=== PATIENT | male | born 1945 | race Caucasian/White ===

== ENCOUNTER → 2017-05-14 | Outpatient (CLI) | payer MEDICARE, OTHER ==
[~2017-05-14] MED LIST: ARAVA20 MG PO; ATENOLOL 50MG T50 M1 PO; BACTRIM DS TAB1 EACH PO; FOLIC ACID1 MG PO; GLUCOPHAGE500 MG PO; IRON; IRON PO; JANTOVEN5 MG PO; LIPITOR80 MG PO; LORTAB 5 MG/5001 TA1 PO; NORCO 5-325 TA1 EACH PO; SULFASALAZINE500 M4 PO; VITAMIN D250000 UNIT PO; VITAMIN D400 UNI1 PO; VITAMINC500 PO; ZOFRAN 4 MG ORAL4 M1 DIS
== END ==
LOC: M.RAD 11:50
DX: J18.9 Pneumonia, unspecified organism (principal); K44.9 Diaphragmatic hernia without obstruction or gangrene

== ENCOUNTER → 2019-01-07 | Outpatient (CLI) | payer MEDICARE, OTHER ==
--- NOTE | 2019-01-07 14:42 | 2DMMODE ---
[place] [address] 2 D/M-MODE ECHOCARDIOGRAM Name: KAYLAN AKHTAR Room: [facility]#: [id number] Admission: 01/07/19 Attend Phys: Adela QUINN Michaud Discharge: Date of : 47 Date of Service: 01/07/19 1442 Report #: [id number] THIS REPORT FOR: //name// APPROVED REPORT Study performed: 01/07/2019 09:01:23 EXAM: Comprehensive 2D, Doppler, and color-flow Echocardiogram Patient Location: Out-Patient BSA: 2.11 HR: 55 bpm BP: 138/87 mmHg Rhythm: NSR Other Information Study Quality: Good Indications Dyspnea Chest Pain Hypertension/HDD 2D Dimensions IVSd: 9.18 (7-11mm) LVOT Diam: 23.54 (18-24mm) LVDd: 54.03 mm PWd: 9.84 (7-11mm) Ascending Ao: 33.88 (22-36mm) LVDs: 35.76 (25-40mm) Aortic Root: 34.14 mm Volumes Left Atrial Volume (Systole) LA ESV Index: 24.90 mL/m2 Aortic Valve AoV Peak Salvatore.: 1.11 m/s AO Peak Gr.: 4.95 mmHg LVOT Max P.50 mmHg AO Mean Gr.: 2.65 mmHg LVOT Mean P.73 mmHg LVOT Max V: 1.06 m/s AO V2 VTI: 28.06 cm LVOT Mean V: 0.58 m/s ROSAMARIA (VTI): 3.76 cm2 LVOT V1 VTI: 24.23 cm Mitral Valve E/A Ratio: 1.54 MV Decel. Time: 192.69 [place] [address] 2 D/M-MODE ECHOCARDIOGRAM Name: KAYLAN AKHTAR Room: [facility]#: [id number] Admission: 01/07/19 Attend Phys: Adela QUINN Michaud Discharge: Date of : 47 Date of Service: 01/07/19 1442 Report #: [id number] MV E Max Salvatore.: 0.71 m/s MV PHT: 55.88 ms MVA (PHT): 3.94 cm2 TDI E/Lateral E': 5.46 E/Medial E': 5.92 Medial E' Salvatore.: 0.12 m/s Lateral E' Salvatore.: 0.13 m/s Pulmonary Valve PV Peak Salvatore.: 0.77 m/s PV Peak Gr.: 2.39 mmHg Left Ventricle The left ventricle is normal size. There is normal LV segmental wall motion. There is normal left ventricular wall thickness. Left ventricular systolic function is normal. LVEF is 55-60%. The left ventricular diastolic function is normal. Right Ventricle The right ventricle is normal size. The right ventricular systolic function is normal. Atria The left atrium size is normal. The right atrium size is normal. Aortic Valve Mild aortic valve sclerosis. No aortic regurgitation is present. There is no aortic valvular stenosis. Mitral Valve The mitral valve is normal in structure. There is no mitral valve regurgitation noted. No evidence of mitral valve stenosis. Tricuspid Valve The tricuspid valve is normal in structure. Unable to assess PA pressure. Trace tricuspid regurgitation. Pulmonic Valve The pulmonary valve is normal in structure. There is no pulmonic valvular regurgitation. Great Vessels The aortic root is normal in size. IVC is normal in size and collapses >50% [place] [address] 2 D/M-MODE ECHOCARDIOGRAM Name: KAYLAN AKHTAR Room: [facility]#: [id number] Admission: 01/07/19 Attend Phys: Adela QUINN Michaud Discharge: Date of : 47 Date of Service: 01/07/19 1442 Report #: [id number] Pericardium There is no pericardial effusion. <Conclusion> The left ventricle is normal size. There is normal left ventricular wall thickness. Left ventricular systolic function is normal. LVEF is 55-60%. The left ventricular diastolic function is normal. There is normal LV segmental wall motion. IVC is normal in size and collapses >50% with inspiration. <ELECTRONICALLY SIGNED> By: Marcio Wallis MD, FACC 01/07/19 [phone] 41 Marcio Wallis MD, FACC /INF
== END ==
LOC: M.CRD 01-06 13:13 → M.CT 08:07
DX: I35.8 Other nonrheumatic aortic valve disorders (principal); I26.99 Other pulmonary embolism without acute cor pulmonale; K44.9 Diaphragmatic hernia without obstruction or gangrene; I10 Essential (primary) hypertension; E11.9 Type 2 diabetes mellitus without complications; R53.83 Other fatigue; Z86.711 Personal history of pulmonary embolism

== ENCOUNTER → 2019-01-14 | Outpatient (CLI) | payer MEDICARE, OTHER | LOC: M.RAD 16:42 | DX: K44.9 Diaphragmatic hernia without obstruction or gangrene (principal); I26.99 Other pulmonary embolism without acute cor pulmonale; R63.5 Abnormal weight gain; Z79.01 Long term (current) use of anticoagulants ==

== ENCOUNTER → 2019-02-19 | Outpatient (CLI) | payer MEDICARE, OTHER | LOC: M.ULTRA 16:00 | DX: I82.611 Acute embolism and thrombosis of superficial veins of right upper extremity (principal) ==

== ENCOUNTER → 2019-09-28 | Outpatient (CLI) | payer OTHER ==
--- NOTE | 2019-09-28 17:22 | CARDNUC ---
[place] [address] CARDIAC NUCLEAR IMAGING REPORT Name: KAYLAN AKHTAR Room: [facility]#: [id number] Admission: 09/28/19 Attend Phys: LESA Chavez Discharge: Date of : 47 Date of Service: 09/28/19 1721 Report #: [id number] THIS REPORT FOR: cc: Adela Michaud Tammy RNP Liston, Michael J. MD [facility] ~ APPROVED REPORT Imaging Protocol: Rest Tc-99m/Stress Tc-99m 1 day Study performed: 09/28/2019 12:30:00 Indication: Chest pain, Dyspnea, Hx. of PE, Hx. Tachycardia/palpitations Patient Location: Out-Patient Stress Tech: Lilian Laguerre Stress Nurse: Ailyn Myers RN NM Tech:SHARAD Herrera Ht: 5 ft 11 in Wt: 205 lbs BSA: 2.13 m2 BMI: 28.58 Medical History Medications: Lisinopril, Warfarin( Jantoven), Atenolol, Pitavastatin, ASA-81 Allergies: No known drug allergies Cardiac Risk Factors: Age, HTN, Hyperlipidemia, DM, FHX of CAD Meds Held (24 hrs): Atenolol Resting Data Rest SPECT myocardial perfusion imaging was performed in supine position 30 minutes following the intravenous injection of 10.7 mCi of Tc-99m Sestamibi. Time of rest injection: 1245 Date: 09/28/2019 The images were gated to evaluate regional wall motion and calculate left ventricular ejection fraction. Administration Route: IV Administration Site: Left Arm Pharmacologic Stress Pharmacologic stress test was performed by injecting Regadenoson 0.4 mg IV push over 10-15 seconds immediately followed by the intravenous injection of 31.0 mCi of Tc-99m Sestamibi. Time of stress injection: 1435 Date: 09/28/2019 Administration Route: [place] [address] CARDIAC NUCLEAR IMAGING REPORT Name: KAYLAN AKHTAR Room: [facility]#: [id number] Admission: 09/28/19 Attend Phys: LESA Chavez Discharge: Date of : 47 Date of Service: 09/28/19 1721 Report #: [id number] Administration Site: Left Arm Gated Stress SPECT was performed 40 minutes after stress injection. The images were gated to evaluate regional wall motion and calculate left ventricular ejection fraction. Stress only was performed in the Supine position. Stress Test Details Stress Test: Pharmacologic stress testing performed using 0.4 mg of regadenoson per 5 mL given IV over 10 seconds. Reason for pharmacologic stress test: arthritis. HR Max Heart Rate (APMHR): 148 bpm Resting HR: 77 bpm Target HR (85% APMHR): 125 bpm Max HR Achieved: 133 bpm % of APMHR: 89 Recovery HR: 106 bpm HR response to stress: Normal HR response to stress BP Resting BP: 125/82 mmHg Max BP: 176/81 mmHg Recovery BP: 135/83 mmHg BP response to stress: Normal blood pressure response to stress. ECG Resting ECG: Sinus Rhythm Stress ECG: Sinus Tachycardia ST Change: None Arrhythmia: None Recovery ECG: Sinus Rhythm Recovery ST Change: None Recovery Arrhythmia: None Clinical Reason for Termination: Completed protocol Stress Symptoms: None Exercise duration: 4 min sec Exercise capacity: 2.30 METs The patient tolerated walking Lexiscan protocol without significant cardiac symptoms. Stress ECG Conclusion The baseline twelve-lead EKG shows sinus rhythm with no significant ST segment or T wave abnormalities. EKGs obtained during and post walking Lexiscan protocol shows sinus [place] [address] CARDIAC NUCLEAR IMAGING REPORT Name: KAYLAN AKHTAR Melissa Room: [facility]#: [id number] Admission: 09/28/19 Attend Phys: LESA Chavez Discharge: Date of : 47 Date of Service: 09/28/19 1721 Report #: [id number] with no significant ST segment or T wave changes when compared to baseline. There were no stress-induced arrhythmias. Study Quality Study: Good Artifact: No artifact Study Data At rest, the left ventricular ejection fraction was 69%.. Post stress, the left ventricular ejection was 75%.. TID = 0.87. Perfusion Perfusion images obtained at rest and post stress showed uniform uptake of the radioisotope throughout the myocardium without defect. Wall Motion Normal left ventricular wall motion. Nuclear Conclusion ECG Findings: negative for ischemia Clinical Findings: negative for ischemia Nuclear Findings: negative for ischemia Exercise Capacity: not assessed Left Ventricular Function: normal Risk Study: low Myocardial perfusion images show no defect to suggest infarct or ischemia. Left ventricular systolic function appears normal on gated studies. This is a low risk study. <Conclusion> The baseline twelve-lead EKG shows sinus rhythm with no significant ST segment or T wave abnormalities. EKGs obtained during and post walking Lexiscan protocol shows sinus rhythm and sinus tachycardia with no significant ST segment or T wave changes when compared to baseline. There were no stress-induced arrhythmias. <ELECTRONICALLY SIGNED> By: Marcio Wallis MD, FACC 09/28/19 172 20 172 Marcio Wallis MD, FACC /INF
== END ==
LOC: M.NUC 07-07 10:55
PROVIDERS: ATTEND Registered Nurse Diabetes Educator
DX: R00.0 Tachycardia, unspecified (principal); E11.9 Type 2 diabetes mellitus without complications; I26.99 Other pulmonary embolism without acute cor pulmonale; I10 Essential (primary) hypertension; E78.2 Mixed hyperlipidemia; R07.9 Chest pain, unspecified; R06.09 Other forms of dyspnea

== ENCOUNTER 2020-09-26 14:17 | Observation (INO) | payer OTHER ==
[~2020-09-26] VITALS: Ht 180.3 cm; Wt 94.8 kg
[2020-09-26 14:29] VITALS: BP 138/62
[2020-09-26 14:39] LABS: URINE BILIRUBIN NEGATIVE (Negative); URINE BLOOD 3+ (Negative); URINE CLARITY CLEAR; URINE COLOR YELLOW; URINE GLUCOSE-RANDOM NEGATIVE (Negative); URINE KETONES 1+ (Negative); URINE LEUKOCYTES-REFLEX NEGATIVE (Negative); URINE NITRITE-REFLEX NEGATIVE (Negative); URINE PROTEIN NEGATIVE (Negative); URINE SPECIFIC GRAVITY >= 1.030 (1.005-1.030); URINE UROBILINOGEN 0.2 E.U./dl (0.2-1.0)
[2020-09-26 14:44] LABS: SQUAMOUS 0-3 Few /LPF (0-3)
[2020-09-26 14:46] LABS: BACTERIA-REFLEX 1-9 Few /HPF (None Seen); MUCUS None Seen strn/LPF (None Seen); URINE RBC None Seen /HPF (0-2); URINE WBC-REFLEX None Seen /HPF (0-5)
[2020-09-26 14:47] LABS: CASTS None Seen /LPF (None Seen); CRYSTALS None Seen /LPF (None Seen)
[2020-09-26 14:48] LABS: ABSOLUTE MONOCYTES 0.6 thou/uL (0.0-1.2); HEMATOCRIT 40.5 % (42.0-52.0); MCV 85.6 fL (80.0-100.0); RBC 4.73 mil/uL (4.50-6.00)
[2020-09-26 14:50] LABS: ABSOLUTE NEUTROPHILS 9.4 thou/uL (1.6-8.1); BASOPHILS 0.4 %; HEMOGLOBIN 13.1 gm/dL (14.0-18.0); LYMPHOCYTES 9.3 %; MCH 27.8 pg (26.0-34.0); MCHC 32.5 g/dL (28.0-37.0); MONOCYTES 5.3 %; MPV 8.5 fl. (7.2-11.1); NUCLEATED RBCS 0 /100WBC; PLATELET COUNT* 325 thou/uL (150-400); RDW-CV 17.6 % (10.5-14.5)
[2020-09-26 14:58] LABS: CALCIUM 8.1 mg/dL (8.5-10.1); CREATININE 1.2 mg/dL (0.6-1.3); POTASSIUM 4.3 mmol/L (3.5-5.1)
[2020-09-26 15:02] LABS: ALBUMIN 3.3 g/dL (3.4-5.0); TOTAL BILIRUBIN 0.5 mg/dL (<0.1-1.0); TOTAL PROTEIN 6.8 g/dL (6.4-8.2)
[2020-09-26] MEDS ORDERED: GLIPIZIDE 10 MG10 MG PO (15:09)
[2020-09-26] MEDS ORDERED: FLOMAX0.4 MG PO (15:09)
[2020-09-26] MEDS ORDERED: LISINOPRIL10 MG PO (15:09)
[2020-09-26] MEDS ORDERED: PROSCAR 5MG TABL5 M1 PO (15:09)
[2020-09-26] MEDS ORDERED: LIVALO1 MG PO (15:09)
[2020-09-26 19:07] VITALS: BP 117/57
[2020-09-26 19:10] LABS: INR 3.3; PROTIME 32.2 Seconds (9.20-11.50)
[2020-09-26 21:51] VITALS: BP 95/46
[2020-09-27 04:46] LABS: CALCIUM 7.8 mg/dL (8.5-10.1); CREATININE 1.3 mg/dL (0.6-1.3); POTASSIUM 3.9 mmol/L (3.5-5.1)
[2020-09-27 04:48] LABS: INR 3.4; PROTIME 33.9 Seconds (9.20-11.50)
[2020-09-27 04:51] LABS: HEMATOCRIT 37.6 % (42.0-52.0); HEMOGLOBIN 12.1 gm/dL (14.0-18.0); MCH 27.6 pg (26.0-34.0); MCHC 32.1 g/dL (28.0-37.0); MCV 86.1 fL (80.0-100.0); MPV 9.3 fl. (7.2-11.1); RBC 4.37 mil/uL (4.50-6.00); RDW-CV 17.7 % (10.5-14.5); WBC 13.7 thou/uL (4.0-11.0)
[2020-09-27 07:15] VITALS: BP 99/54
[2020-09-27] MEDS ORDERED: HYDROCODON-ACE1 EAC7 PO (10:24)
[2020-09-27 10:31] VITALS: BP 99/54
[2020-09-27 11:24] VITALS: BP 99/54
--- NOTE | 2020-09-27 14:12 | EKG ---
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1945 Requested By: Galo Nava Order Number: [id number] MD: Wil Busch Measurements Intervals [place] Rate: 60 P: 41 [place]: 159 QRS: -21 QRSD: 113 T: 17 QT: 429 QTc: 429 Interpretive Statements Sinus rhythm Borderline intraventricular conduction delay Compared to ECG 08/27/2011 09:47:23 Sinus bradycardia no longer present Electronically Signed On 09-27-2020 14:12:42 CDT by Wil Busch [email or web address] <ELECTRONICALLY SIGNED> By: Wil Busch MD, [facility] 09/27/20 1412 1448 1448 Wil Busch MD, [facility] /EPI
[2020-09-28 03:06] LABS: GLYCOHEMOGLOBIN (HGB A1C) 6.1 % (4.8-5.6)
== END 2020-09-27 11:25 | disposition home or self-care (01) ==
LOC: M.ERS 14:17 → M.TBA-ER 17:35 → M.ORTHSURG 19:00
PROVIDERS: Family Medicine; Nurse Practitioner Psychiatric/Mental Health; ADMIT Internal Medicine; ATTEND Internal Medicine
DX: N13.2 Hydronephrosis with renal and ureteral calculous obstruction (principal); I10 Essential (primary) hypertension; E78.5 Hyperlipidemia, unspecified; I49.9 Cardiac arrhythmia, unspecified; M06.9 Rheumatoid arthritis, unspecified; E11.9 Type 2 diabetes mellitus without complications; K21.9 Gastro-esophageal reflux disease without esophagitis; Z79.01 Long term (current) use of anticoagulants; Z79.899 Other long term (current) drug therapy; Z86.711 Personal history of pulmonary embolism; Z86.718 Personal history of other venous thrombosis and embolism

== ENCOUNTER → 2020-10-06 | Outpatient (CLI) | payer OTHER ==
[~2020-10-06] MED LIST changes: +FLOMAX0.4 MG PO; +GLIPIZIDE 10 MG10 MG PO; +HYDROCODON-ACE1 EAC7 PO; +LISINOPRIL10 MG PO; +LIVALO1 MG PO; +PROSCAR 5MG TABL5 M1 PO
== END ==
LOC: M.ULTRA 13:30 → M.CT 15:00
PROVIDERS: ATTEND Internal Medicine
DX: I82.811 Embolism and thrombosis of superficial veins of right lower extremity (principal); K44.9 Diaphragmatic hernia without obstruction or gangrene; I26.93 Single subsegmental thrombotic pulmonary embolism without acute cor pulmonale